=== PATIENT | male | born 1945 | race Two or more races ===

== ENCOUNTER 2020-02-20 20:55 | Emergency (ER) | payer SELFPAY ==
[~2020-02-20] VITALS: Ht 167.6 cm; Wt 75.0 kg
[2020-02-20 21:40] VITALS: BP 122/65
== END 2020-02-20 23:10 | disposition left against medical advice (07) ==
LOC: ER 20:55
DX: F10.129 Alcohol abuse with intoxication, unspecified (principal); Y90.0 Blood alcohol level of less than 20 mg/100 ml; I10 Essential (primary) hypertension
CPT/HCPCS: 71045; 99283